=== PATIENT | female | born 1950 ===

== ENCOUNTER 2024-08-16 10:54 | Outpatient (CLI) | payer OTHER | END 2024-08-16 10:56 | disposition home or self-care (01) | LOC: RAD 10:54 | PROVIDERS: ATTEND Orthopaedic Surgery | DX: S42.321A Displaced transverse fracture of shaft of humerus, right arm, initial encounter for closed fracture (principal) ==

== ENCOUNTER 2024-09-06 07:52 | Outpatient (CLI) | payer OTHER | END 2024-09-06 07:55 | disposition home or self-care (01) | LOC: RAD 07:52 | PROVIDERS: ATTEND Orthopaedic Surgery | DX: S42.321A Displaced transverse fracture of shaft of humerus, right arm, initial encounter for closed fracture (principal); X58.XXXA Exposure to other specified factors, initial encounter; Y93.9 Activity, unspecified; Y92.9 Unspecified place or not applicable; Y99.9 Unspecified external cause status ==

== ENCOUNTER 2024-10-01 08:22 | Outpatient (CLI) | payer OTHER | END 2024-10-01 08:28 | disposition home or self-care (01) | LOC: RAD 08:22 | PROVIDERS: ATTEND Orthopaedic Surgery | DX: S42.321A Displaced transverse fracture of shaft of humerus, right arm, initial encounter for closed fracture (principal); X58.XXXA Exposure to other specified factors, initial encounter; Y93.9 Activity, unspecified; Y92.9 Unspecified place or not applicable; Y99.9 Unspecified external cause status ==

== ENCOUNTER 2024-10-31 08:21 | Outpatient (CLI) | payer OTHER | END 2024-10-31 08:27 | disposition home or self-care (01) | LOC: RAD 08:21 | PROVIDERS: ATTEND Orthopaedic Surgery | DX: S42.321A Displaced transverse fracture of shaft of humerus, right arm, initial encounter for closed fracture (principal) ==

== ENCOUNTER 2024-12-30 07:49 | Outpatient (CLI) | payer OTHER | END 2024-12-30 07:54 | disposition home or self-care (01) | LOC: RAD 07:49 | PROVIDERS: ATTEND Orthopaedic Surgery | DX: S42.321A Displaced transverse fracture of shaft of humerus, right arm, initial encounter for closed fracture (principal); X58.XXXA Exposure to other specified factors, initial encounter; Y93.9 Activity, unspecified; Y92.9 Unspecified place or not applicable; Y99.9 Unspecified external cause status ==